=== PATIENT | female | born 1975 | race Caucasian/White ===

== ENCOUNTER 2022-09-17 11:57 | Outpatient (REF) | payer BC, SELFPAY ==
--- NOTE | 2022-09-17 11:10 | PAPFT_PTH ---
PATIENT: Patti Garcia LOC: [facility] U#:[id number] AGE/SX: 47/F ROOM: RE09/17/[address]: Joann Ramos NP : 1975 BED: DIS: 09/17/2022 SPEC #: [id number] RECD: 09/17/22 17:56 STATUS: GIOVANNI REJose #: [id number] PRISCILLA: 09/17/22 11:[address]: Joann Ramos NP DEPT: [facility] Cytology RECD BY: Carmen Salas Tissues: 1 - CX/ENDOCX FOR PAP SMEARS Procedures: PAP THIN PREP/UVM Screening HPV DNA PROBE Comments: [id number]
== END 2022-09-17 11:58 | disposition home or self-care (01) ==
LOC: LBN 11:57
PROVIDERS: Visit Provider Nurse Practitioner Women's Health
DX: Z12.4 Encounter for screening for malignant neoplasm of cervix (principal); R87.610 Atypical squamous cells of undetermined significance on cytologic smear of cervix (ASC-US); Z11.51 Encounter for screening for human papillomavirus (HPV)
CPT/HCPCS: 88142; 87624

== ENCOUNTER 2022-10-08 09:50 | Outpatient (CLI) | payer BC, SELFPAY ==
--- NOTE | 2022-10-08 08:45 | DI.RAD_ITS ---
Exam(s) XR WRIST LT COMPLETE EXAM: XR WRIST LT COMPLETE CLINICAL HISTORY: BILATERAL WRIST PAIN. TECHNIQUE: 2D digital imaging was performed. COMPARISON: No exams were available for comparison FINDINGS: Four views No evidence of acute fracture or dislocation nor significant ulnar variance. Scaphoid unremarkable a s is a flu José Luis distance. 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 Distal carpal row bones appear unremarkable. Bone density normal. No osseous lesions nor erosions nor dege nerative changes. First carpometacarpal joint appears unremarkable. IMPRESSION: No acute osseous findings. 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 DATA REPOSITORY: RADIATION DOSE DELIVERED:
--- NOTE | 2022-10-08 08:45 | DI.RAD_ITS ---
Exam(s) XR WRIST RT COMPLETE EXAM: XR WRIST RT COMPLETE CLINICAL HISTORY: BILATERAL WRIST PAIN. TECHNIQUE: 2D digital imaging was performed. COMPARISON: No exams were available for comparison FINDINGS: Four views: No evidence of acute fracture nor dislocation nor significant ulnar variance. Scaphoid unremarkable. Scapholunate distance normal. There is developmental fusion of the lunate and triquetrum bones, id entical to the opposite side. Distal carpal row bones appear unremarkable. No degenerative changes in the 1st carpometacarpal joint nor elsewhere in the wrist. IMPRESSION: No acute osseous findings. 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 This is s een bilaterally. DATA REPOSITORY: RADIATION DOSE DELIVERED:
== END 2022-10-08 09:51 | disposition home or self-care (01) ==
LOC: DIORS 09:50
PROVIDERS: PCP Internal Medicine; Visit Provider Student in an Organized Health Care Education/Training Program
DX: M25.531 Pain in right wrist (principal); M25.532 Pain in left wrist
CPT/HCPCS: 73110

== ENCOUNTER 2023-04-21 18:23 | Emergency (ER) | payer BC, SELFPAY ==
[2023-04-21 18:28] VITALS: BP 173/87; PULSE 88; RESP 16; TEMP 35.9; O2SAT 98
--- NOTE | 2023-04-21 18:30 | RT.EKG_ITS ---
APPROVED REPORT Exam: Resting ECG Reason for Exam: nausea Patient Location: E HR:79 bpm ECG Measurements Heart Rate 79 AXIS NV 149 P 55 QRSd 88 QRS -6 QT 371 T 27 QTc 424 Conclusion Sinus rhythm...normal P axis, V-rate 60- 99 I have reviewed and interpreted ECG and agree with software generated interpretation.
[2023-04-21 18:46] VITALS: BP 136/69; PULSE 78; RESP 18; TEMP 36.9; O2SAT 98
[2023-04-21 19:04] LABS: Abs Immature Grans 0.04 10^3/uL (0.0-0.06); Absolute Basophil Count 0.03 10^3/uL (0.0-0.2); Absolute Eosinophil Count 0.08 10^3/uL (0.0-0.7); Absolute Lymphocyte Count 1.24 10^3/uL (1.2-3.4); Absolute Monocyte Count 0.77 10^3/uL (0.1-0.8); Absolute Neutrophil Count 5.87 10^3/uL (1.2-6.7); Basophils % 0.4; HCT 42.5 % (36.0-46.0); Immature Grans % 0.5; Lymphocytes % 15.4; MCH 28.2 pg (27.0-33.0); MCHC 32.9 % (32.0-36.0); MCV 86 fL (80-95); MPV 12.5 fL (8.0-11.0); Monocytes % 9.6; Neutrophils % 73.1; Platelet Count 211 10^3/uL (130-400); RBC 4.96 10^6/uL (3.93-5.22); RDW-SD 46.9 fL; WBC 8.03 10^3/uL (4.4-10.8)
[2023-04-21 19:23] LABS: ALT 21 U/L (14-59); AST 14 U/L (15-37); Albumin 3.9 g/dL (3.4-5.0); Alkaline Phosphatase 78 U/L (46-116); Anion Gap 13.2 mmol/L (3-11); BUN 17 mg/dL (7-18); Bilirubin, Total 1.6 mg/dL (0.2-1.0); CO2 23.8 mmol/L (21.0-32.0); Calcium 10.3 mg/dL (8.5-10.1); Chloride 102 mmol/L (98-107); Estimated GFR 69.93 (mL/min/1.73m2); Glucose 108 mg/dL (74-106); Lipase 20 U/L (16-77); Potassium 3.6 mmol/L (3.5-5.1); Sodium 139 mmol/L (136-145); Total Protein 7.7 g/dL (6.4-8.2)
[2023-04-21] MEDS: Lactated Ringers 1,000 ML 1000 ML IV (19:24)
[2023-04-21] MEDS: Ondansetron 4 MG/2 ML VIAL IVP (19:24)
--- NOTE | 2023-04-21 19:25 | NUR.NOTE ---
Pt states she is unable to urinate, advised to let us know when she is able. FPJ
[2023-04-21 19:29] LABS: HCG Qual (Serum) Negative
[2023-04-21] MEDS: Ondansetron O.D.T. 4 MG TABEF, 3 TABS/BTL PO (20:44)
--- NOTE | 2023-04-21 21:32 | ED.GENADUL_ITS ---
Discharge Plan Disposition Patient Disposition: Home Discharge Details Clinical Impression: Diarrhea, Nausea & vomiting Primary Care Provider: Haley Pinon ED Provider: Carmen Valdez Home Meds and New Rx's Prescriptions: New ondansetron 4 mg tablet,disintegrating 4 mg PO Q8H 3 Days Qty: 9 0RF Continued lisinopril 5 mg tablet 5 mg PO DAILY bupropion HCl [Wellbutrin SR] 150 mg tablet sustained-release 12 hr 150 mg PO DAILY rosuvastatin [Crestor] 5 mg tablet 5 mg PO DAILY pantoprazole [Protonix] 40 mg tablet,delayed release (DR/EC) 40 mg PO DAILY sertraline [Zoloft] 50 mg tablet 50 mg PO DAILY Mirena 21 mcg/24 hours (8 yrs) 52 mg intrauterine device 1 device intrauterine ONCE Rx Instructions: as a single dose Discharge Instructions Instructions: Acute Nausea and Vomiting (ED), Acute Diarrhea (ED) Additional Instructions: Take Zofran as needed for nausea and vomiting Increase fluid hydration hold off on taking your wegovy until the lower dose returns return earlier should you have new or worsening complaints Referrals: Haley Pinon [Primary Care Provider] - Medical Decision Making This 48-year-old female presents with nausea and vomiting after reinitiating Wegovy, this is previously made her nauseous and vomit in the past Her labs displayed dehydration and mild elevation of her bilirubin, lipase is within normal limits and she is feeling marked improvement after 1 L fluid and Zofran I think patient is likely stable for discharge home, she is given a prescription for Zofran will not reinitiate her medication until she speaks with her doctor. HPI General Date/Time Provider Initiated Documentation: 04/21/23 18:24 . HPI Narrative: This 48-year-old female presents with nausea and vomiting, Wegovy makes her nauseous and vomiting and she took a 3-week break on her medication and reinitiated a full 1 mg dose and since Saturday she has had nausea and vomiting which is when she did her injection. She denies any fever or chills, she denies any chest pain or shortness of breath. Denies any dizziness or weakness. She states she feels like she might be dehydrated, denies any chance of . Denies blood in vomitus. Related Data Home Medications Medication Instructions Recorded Confirmed bupropion HCl 150 mg tablet,12 hr 150 mg PO DAILY 09/17/22 10/09/22 sustained-release (Wellbutrin SR) pantoprazole 40 mg tablet,delayed 40 mg PO DAILY 09/17/22 10/09/22 release (Protonix) rosuvastatin 5 mg tablet (Crestor) 5 mg PO DAILY 09/17/22 10/09/22 sertraline 50 mg tablet (Zoloft) 50 mg PO DAILY 09/17/22 10/09/22 levonorgestrel 21 mcg/24 hours (8 1 device intrauterine ONCE 09/18/22 10/09/22 yrs) 52 mg intrauterine device (Mirena) lisinopril 5 mg tablet 5 mg PO DAILY 10/08/22 10/09/22 ondansetron 4 mg disintegrating 4 mg PO Q8H 3 days #9 tabs 04/21/23 tablet Previous Rx's Medication Instructions Recorded ondansetron 4 mg disintegrating 4 mg PO Q8H 3 days #9 tabs 04/21/23 tablet Allergies Allergy/AdvReac Type Severity Reaction Status Date / Time Sulfa (Sulfonamide Allergy Intermediate Nausea Verified 10/08/22 08:41 Antibiotics) General Stated Complaint: Nausea/Vomit/Diar KATY: 3 PFSH All Active Problems (Updated 04/21/23 @ 20:36 by JONAS Woo) Nausea & vomiting (Acute) Diarrhea (Acute) Left wrist pain (Acute) Right wrist pain (Acute) Lunotriquetral synostosis (Acute) IUD surveillance (Acute) Mirena placed 2017 Depression (Chronic) Hypertension (Chronic) High cholesterol (Chronic) Surgical History History of sleeve gastrectomy Family History Other Adopted Breast cancer Diabetes Heart disease Hyperlipidemia Hypertension Social History Smoking/Tobacco Use Status: Former Tobacco Use Smoking risk assessment performed?: Yes Drug use: Never Substance use type: does not use Housing: apartment Do you feel safe at home: Yes Do you feel safe in your relationship?: Yes Female Reproductive History Menstrual control method: progestin IUCD History History 5 Para 3 Hx # Term Pregnancies Multiple births Hx # Pregnancies Ectopic pregnancies AB induced Hx Number of Living Children AB spontaneous 2 Course Vital Signs Vital signs: Vital Signs Temperature 35.9 C L 04/21/23 18:28 Pulse 88 04/21/23 18:28 Respiratory Rate 16 04/21/23 18:28 Blood Pressure 173/87 H 04/21/23 18:28 Pulse Oximetry 98 04/21/23 18:28 Temperature 36.9 C 04/21/23 18:46 Temperature Source Oral 04/21/23 18:46 Pulse 78 04/21/23 18:46 Respiratory Rate 18 04/21/23 18:46 Respiratory Effort Normal 04/21/23 18:46 Blood Pressure 136/69 04/21/23 18:46 Blood Pressure Position Supine 04/21/23 18:46 Pulse Oximetry 98 04/21/23 18:46 Oxygen Delivery Method Room Air 04/21/23 18:46 Oxygen Flow Rate 0 04/21/23 18:28 Pain Level 0 04/21/23 18:28 Lab/Test Results Lab/Test Results: Laboratory Tests Range/Units 04/21/23 18:52 WBC (4.4-10.8) 10^3/uL 8.03 RBC (3.93-5.22) 10^6/uL 4.96 Hgb (11.2-15.7) g/dL 14.0 Hct (36.0-46.0) % 42.5 MCV (80-95) fL 86 MCH (27.0-33.0) pg 28.2 MCHC (32.0-36.0) % 32.9 RDW (11.7-14.6) % 15.0 H Plt Count (130-400) 10^3/uL 211 MPV (8.0-11.0) fL 12.5 H Immature Gran % 0.5 Neutrophils % 73.1 Lymphocytes % 15.4 Monocytes % 9.6 Eosinophils % 1.0 Basophils % 0.4 Nucleated RBC % (0.0-0.3) % 0.0 Absolute Neutrophils (1.2-6.7) 10^3/uL 5.87 Absolute Lymphocytes (1.2-3.4) 10^3/uL 1.24 Absolute Monocytes (0.1-0.8) 10^3/uL 0.77 Absolute Eosinophils (0.0-0.7) 10^3/uL 0.08 Absolute Basophils (0.0-0.2) 10^3/uL 0.03 Sodium (136-145) mmol/L 139 Potassium (3.5-5.1) mmol/L 3.6 Chloride (98-107) mmol/L 102 Carbon Dioxide (21.0-32.0) mmol/L 23.8 Anion Gap (3-11) mmol/L 13.2 H BUN (7-18) mg/dL 17 Creatinine (0.55-1.02) mg/dL 1.0 Est GFR (CKD-EPI 2020) (mL/min/1.73m2) 69.93 Glucose (74-106) mg/dL 108 H Calcium (8.5-10.1) mg/dL 10.3 H Magnesium (1.8-2.4) mg/dL 2.0 Total Bilirubin (0.2-1.0) mg/dL 1.6 H AST (15-37) U/L 14 L ALT (14-59) U/L 21 Alkaline Phosphatase (46-116) U/L 78 Total Protein (6.4-8.2) g/dL 7.7 Albumin (3.4-5.0) g/dL 3.9 Lipase (16-77) U/L 20 Serum HCG, Qual Negative PAWSS Have you Been Recently Intoxicated or Drunk Within the Last 30 days?: No Have you Ever Experienced Previous Episodes of Alcohol Withdrawal?: No Have you ever Experienced Withdrawal Seizures?: No Have you ever Experienced Delirium Tremens(DT)s?: No Have you ever undergone Alcohol Rehabilitation Treatment (i.e, inpt ot outpatient treatment programs)?: No Have you ever Experienced Blackouts?: No Have you ever Combined Alcohol with other Downers within the last 90 days?: No Have you ever Combined Alcohol with any other Substance of Abuse during the last 90 days?: No Positive Blood Alcohol level on Presentation? [PCS.BAL]: No Evidence of Increased Autonomic Activity (i.e. HR>120, tremor, sweating, agitation, nausea)?: No Result: 0
== END 2023-04-21 20:45 | disposition home or self-care (01) ==
PROVIDERS: Emergency Provider Physician Assistant; PCP Internal Medicine
DX: R11.2 Nausea with vomiting, unspecified (principal); R19.7 Diarrhea, unspecified; Q78.8 Other specified osteochondrodysplasias; Z98.84 Bariatric surgery status; Z87.891 Personal history of nicotine dependence; E86.0 Dehydration
CPT/HCPCS: 36415; 80053; 83690; 93005; 99283; 83735; 84703; 85025; 93010; J2405

== ENCOUNTER 2023-07-30 14:32 | Outpatient (CLI) | payer BC, SELFPAY ==
--- NOTE | 2023-07-30 14:15 | DI.RAD_ITS ---
Exam(s) XR SHOULDER RT COMPLETE 2+V EXAM: XR SHOULDER RT COMPLETE 2+V CLINICAL HISTORY: BILATERAL SHOULDER PAIN. TECHNIQUE: 2D digital imaging was performed. Two views. COMPARISON: CR XR SHOULDER LT COMPLETE 2+V from 07/30/2023 FINDINGS: Axillary view limited BONES: No acute fracture is present. No bony destructive lesion is seen. Spurring at the undersurfac e of the acromion. JOINTS: No dislocation present. Glenohumeral joint space is maintained. Mild spurring at the AC gia nt. SOFT TISSUE: Normal. IMPRESSION: Degenerative changes at the AC joint and undersurface of the acromion. DATA REPOSITORY: RADIATION DOSE DELIVERED:
--- NOTE | 2023-07-30 14:15 | DI.RAD_ITS ---
Exam(s) XR SHOULDER LT COMPLETE 2+V EXAM: XR SHOULDER LT COMPLETE 2+V CLINICAL HISTORY: BILATERAL SHOULDER PAIN. TECHNIQUE: 2D digital imaging was performed. Two views. COMPARISON: No exams were available for comparison FINDINGS: Axial view limited. BONES: No acute fracture is present. No bony destructive lesion is seen. JOINTS: No dislocation present. Minimal spurring at the AC joint. Glenohumeral joint is maintained. SOFT TISSUE: Normal. IMPRESSION: Minimal degenerative changes. DATA REPOSITORY: RADIATION DOSE DELIVERED:
== END 2023-07-30 14:33 | disposition home or self-care (01) ==
LOC: DIORS 14:32
PROVIDERS: PCP Nurse Practitioner Family; Visit Provider Student in an Organized Health Care Education/Training Program
DX: M19.011 Primary osteoarthritis, right shoulder (principal); M25.512 Pain in left shoulder
CPT/HCPCS: 73030

== ENCOUNTER 2023-08-21 03:17 | Outpatient (CLI) | payer BC, SELFPAY ==
[2023-08-21 15:50] LABS: Abs Immature Grans 0.04 10^3/uL (0.0-0.06); Absolute Basophil Count 0.05 10^3/uL (0.0-0.2); Absolute Eosinophil Count 0.13 10^3/uL (0.0-0.7); Absolute Lymphocyte Count 1.59 10^3/uL (1.2-3.4); Absolute Monocyte Count 0.74 10^3/uL (0.1-0.8); Absolute Neutrophil Count 5.64 10^3/uL (1.2-6.7); Basophils % 0.6; Eosinophils % 1.6; HCT 39.6 % (36.0-46.0); HGB 13.1 g/dL (11.2-15.7); Immature Grans % 0.5; Lymphocytes % 19.4; MCH 28.2 pg (27.0-33.0); MCHC 33.1 % (32.0-36.0); MCV 85 fL (80-95); MPV 12.2 fL (8.0-11.0); Neutrophils % 68.9; Platelet Count 224 10^3/uL (130-400); RBC 4.65 10^6/uL (3.93-5.22); RDW-SD 42.9 fL; WBC 8.19 10^3/uL (4.4-10.8)
[2023-08-21 16:11] LABS: ESR 14 mm/hr (0-20)
[2023-08-21 17:12] LABS: C-Reactive Protein < 0.50 mg/dL (<or=0.5)
[2023-08-21 17:16] LABS: BUN 18 mg/dL (7-18); CREATININE 0.9 mg/dL (0.55-1.02); Calcium 9.9 mg/dL (8.5-10.1); Chloride 105 mmol/L (98-107); Estimated GFR 79.35 (mL/min/1.73m2); Glucose 78 mg/dL (74-106); Potassium 4.1 mmol/L (3.5-5.1); Sodium 142 mmol/L (136-145)
== END 2023-08-21 03:18 | disposition home or self-care (01) ==
LOC: LBO 03:19
PROVIDERS: Physician Assistant; PCP Nurse Practitioner Family; Visit Provider Nurse Practitioner Family
DX: I10 Essential (primary) hypertension (principal); M25.511 Pain in right shoulder; M25.512 Pain in left shoulder
CPT/HCPCS: 36415; 80048; 85652; 85025; 86140

== ENCOUNTER 2024-01-06 03:26 | Outpatient (CLI) | payer BC, SELFPAY ==
[2024-01-06 08:20] LABS: Anion Gap 6.3 mmol/L (3-11); BUN 13 mg/dL (7-18); CO2 29.7 mmol/L (21.0-32.0); CREATININE 0.9 mg/dL (0.55-1.02); Calcium 9.2 mg/dL (8.5-10.1); Chloride 108 mmol/L (98-107); Estimated GFR 79.35 (mL/min/1.73m2); Glucose 94 mg/dL (74-106); Potassium 4.2 mmol/L (3.5-5.1); Sodium 144 mmol/L (136-145)
== END 2024-01-06 03:27 | disposition home or self-care (01) ==
PROVIDERS: PCP Physician Assistant Medical; Visit Provider Nurse Practitioner Family
DX: I10 Essential (primary) hypertension (principal)
CPT/HCPCS: 36415; 80048

== ENCOUNTER 2024-03-12 15:54 | Outpatient (REF) | payer BC, SELFPAY ==
[2024-03-12 18:07] LABS: Hemoglobin A1C 5.4 % (<5.7)
[2024-03-12 18:10] LABS: Iron 59 ug/dL (50-170); Total Iron Binding Capacity 394 ug/dL (250-450); Transferrin Sat 15 % (15-50)
[2024-03-12 18:24] LABS: ALT 14 U/L (14-59); AST 19 U/L (15-37); Albumin 3.7 g/dL (3.4-5.0); Alkaline Phosphatase 90 U/L (46-116); Anion Gap 8.2 mmol/L (3-11); BUN 13 mg/dL (7-18); CO2 28.8 mmol/L (21.0-32.0); CREATININE 0.9 mg/dL (0.55-1.02); Calcium 10.1 mg/dL (8.5-10.1); Calculated LDL 112 mg/dL (<100); Chloride 105 mmol/L (98-107); Cholesterol 183 mg/dL (<200); Estimated GFR 78.86 (mL/min/1.73m2); Ferritin 24 ng/mL (8-252); Folate 4.1 ng/mL (8.6-20.0); Glucose 88 mg/dL (74-106); HDL Cholesterol 57 mg/dL (40-60); Magnesium 2.3 mg/dL (1.8-2.4); Potassium 4.4 mmol/L (3.5-5.1); Sodium 142 mmol/L (136-145); Total Protein 6.9 g/dL (6.4-8.2); Triglyceride 72 mg/dL (<150); Vitamin B12 262 pg/mL (193-986); Vitamin D 25 Total 33.7 ng/mL (30-100)
[2024-03-13 18:36] LABS: Parathyroid Hormone,Intact 117 pg/mL (19-88)
[2024-03-18 11:01] LABS: Thiamine (Vitamin B1), WB 124 nmol/L (70-180)
== END 2024-03-12 15:55 | disposition home or self-care (01) ==
LOC: NCHCN 15:54
PROVIDERS: PCP Physician Assistant Medical; Visit Provider Physician Assistant Medical
DX: E66.9 Obesity, unspecified (principal)
CPT/HCPCS: 80053; 80061; 82306; 82607; 82728; 82746; 83036; 83540; 83550; 83735; 83970; 84425

== ENCOUNTER 2024-06-23 19:08 | Outpatient (REF) | payer BC, SELFPAY ==
[2024-06-23 19:55] LABS: TSH (W/Ref FT4) 1.63 uIU/mL (0.36-3.74)
== END 2024-06-23 19:09 | disposition home or self-care (01) ==
LOC: NCHCN 19:08
PROVIDERS: PCP Physician Assistant Medical; Visit Provider Physician Assistant Medical
DX: E66.9 Obesity, unspecified (principal)
CPT/HCPCS: 84443

== ENCOUNTER 2025-04-07 15:24 | Outpatient (REF) | payer BC, SELFPAY ==
[2025-04-07 20:37] LABS: ALT 19 U/L (14-59); AST 13 U/L (15-37); Albumin 3.7 g/dL (3.4-5.0); Alkaline Phosphatase 84 U/L (46-116); Anion Gap 8.8 mmol/L (3-11); BUN 12 mg/dL (7-18); Bilirubin, Total 0.7 mg/dL (0.2-1.0); CO2 28.2 mmol/L (21.0-32.0); Calcium 9.8 mg/dL (8.5-10.1); Calculated LDL 82 mg/dL (<100); Chloride 105 mmol/L (98-107); Cholesterol 144 mg/dL (<200); Estimated GFR 78.37 (mL/min/1.73m2); Glucose 106 mg/dL (74-106); HDL Cholesterol 49 mg/dL (>or=50); Potassium 4.3 mmol/L (3.5-5.1); Sodium 142 mmol/L (136-145); Total Protein 6.9 g/dL (6.4-8.2); Triglyceride 65 mg/dL (<150)
== END 2025-04-07 15:25 | disposition home or self-care (01) ==
LOC: NCHCN 15:24
PROVIDERS: PCP Physician Assistant Medical; Visit Provider Physician Assistant Medical
DX: E78.5 Hyperlipidemia, unspecified (principal)
CPT/HCPCS: 80053; 80061